=== PATIENT | male | born 1975 | race Caucasian/White ===

== ENCOUNTER 2017-02-16 06:37 | Day surgery (SDC) | payer BC, OTHER ==
[2017-02-16] MEDS ORDERED: Lidocaine 1% with EPINEPHrine 1:100,000 50 ML MDV ONE (06:44)
[2017-02-16] MEDS ORDERED: Bupivacaine 0.5% 50 ML MDV ONE (06:44)
[2017-02-16] MEDS ORDERED: fentaNYL 250 MCG/5 ML SDV ONE ×2 (07:28→08:17)
[2017-02-16] MEDS ORDERED: Neostigmine Methylsulfate 1 MG/ML 5 ML Syringe ONE (07:29)
[2017-02-16] MEDS ORDERED: Glycopyrrolate 0.2 MG/ML 5 ML MDV ONE (07:29)
[2017-02-16] MEDS ORDERED: Rocuronium 50 MG/5 ML Vial ONE (07:29)
[2017-02-16] MEDS ORDERED: Ondansetron 4 MG/2 ML SDV ONE (07:29)
[2017-02-16] MEDS ORDERED: Propofol 200 MG/20 ML SDV ONE (07:29)
[2017-02-16] MEDS ORDERED: Dexamethasone 4 MG/ML SDV ONE (07:29)
[2017-02-16] MEDS ORDERED: Albuterol/Ipratropium 3.0-0.5 MG/3 ML Neb Soln NEB ONE (07:50)
[2017-02-16] MEDS ORDERED: Sodium Chloride 0.9% 1,000 ML IV SCH (08:00)
[2017-02-16] MEDS ORDERED: Sodium Chloride 0.9% 10 ML ONE (08:17)
[2017-02-16] MEDS ORDERED: metroNIDAZOLE/Normal Saline 500 MG in Premix Bag 1 BAG IV ONE (08:30)
[2017-02-16] MEDS ORDERED: ceFAZolin 2 GM in Premix Bag 1 BAG IV ONE (08:30)
[2017-02-16] MEDS ORDERED: ceFAZolin 2 GM in Sodium Chloride 0.9% 50 ML IV ONE (08:30)
[2017-02-16] MEDS ORDERED: Ketorolac 60 MG/2 ML SDV ONE (09:01)
[2017-02-16] MEDS ORDERED: traMADol 50 MG Tab PO PRN (09:06)
[2017-02-16] MEDS ORDERED: hydrOXYzine HCl 100 MG/2 ML SDV IM PRN (09:07)
--- NOTE | 2017-02-17 09:48 | OR ---
DATE OF PROCEDURE: 02/16/2017 PROCEDURE: Total extraperitoneal hernia repair, bilateral. COMPLICATIONS: None. COSTUME SEAMSTRESS: None. ANESTHESIA: General. INDICATIONS: A pleasant 41-year-old with bilateral inguinal hernias requiring definitive repair. RISKS: Risks, benefits, alternatives, limitations including but not limited to infection, bleeding, injury to the testicles with clotting, possible testicular loss, chronic pain, scar formation, other risks that are not listed here were explained to the patient. PROCEDURE IN DETAIL: The patient was placed in a supine position. A linear infraumbilical incision was made. This was used with electrocautery down to the rectus, external oblique aponeurosis, which was opened with electrocautery. The rectus muscles were then and a Pean used to create a plane between the peritoneum and the rectus muscles. The kidney balloon, double insufflation balloon, was then advanced to the pubic symphysis, and the abdomen insufflated with 30 pumps of the insufflator under direct visualization. The balloon was then removed, and the area was inspected. Excellent dissection was noted. Two 5-mm ports were also entered under direct visualization. Dissection was then commenced with left and right side, left side first. This was performed using a [id number] type technique in the avascular plane. The hernia was noted to be indirect and dissection continued, leaving the cord structures. Of note, the cord structures were identified multiple times but were not interacted with in any way. Once dissection was complete, the pubic symphysis dissection was commenced on the right side. The right side was dissected in the same manner, same fashion, same technique, and same sequence using the same equipment. Both were indirect inguinal hernias. The mesh system was then rolled and introduced. This was unrolled with pubic symphysis overlap and the mesh centered on the hernia defect. Once this was unrolled, the right side was then performed in the same manner, same fashion, same technique, and in the same sequence. The air was subsequently deflated under direct visualization, and the mesh was noted to be in place. The fascia was then closed with 0 Vicryl in an interrupted fashion. Subcutaneous tissues were closed with 3-0 Vicryl. Skin was closed with 4-0 Vicryl and Dermabond was applied. The patient tolerated the procedure well. Chuy Fernández MD /[id number]
== END 2017-02-16 13:59 | disposition home or self-care (01) ==
LOC: JP.SDS 06:37
PROVIDERS: ATTEND Surgery
DX: K40.20 Bilateral inguinal hernia, without obstruction or gangrene, not specified as recurrent (principal); F17.210 Nicotine dependence, cigarettes, uncomplicated
CPT/HCPCS: 49505; A9270; C1727; C1781; J0690; J1100; J1885; J2405; J2704; J2710; J3010; J3410; J7040; J7050; J7620

== ENCOUNTER 2017-09-04 13:17 | Emergency (ER) | payer BC ==
[2017-09-04] MEDS ORDERED: Ketorolac 60 MG/2 ML SDV IM ONE (13:54)
--- NOTE | 2017-09-04 14:07 | EDM.PDOC ---
ED HPI GENERAL MEDICAL PROBLEM - General Chief Complaint: Bite:Animal, Insect Stated Complaint: LACK OF ENGERY AND NOT EATING Time Seen by Provider: 09/04/17 13:45 Source of Information: Reports: Patient, Family History Limitations: Reports: No Limitations - History of Present Illness INITIAL COMMENTS - FREE TEXT/NARRATIVE: 42-year-old male with generalized malaise, fever, decreased energy, lack of appetite and headache over the past 24-36 hours. He removed a small but engorged tick from his penis one week ago and is concerned it may be related. He has no other specific symptoms other than a headache, he has no sore throat, cold symptoms, cough or shortness of breath, rashes, joint pains or abdominal pain. Denies dysuria. He took acetaminophen last evening and it didn't help. This morning he usually eats 3 eggs, he only ate one and couldn't eat anymore. Onset: Gradual (Over the past day and a half) Severity: Moderate Associated Symptoms: Reports: Fever/Chills, Loss of Appetite, Malaise, Weakness , Other (Headache). Denies: Confusion, Nausea/Vomiting, Shortness of Breath - Related Data Allergies Allergy/AdvReac Type Severity Reaction Status Date / Time acetaminophen [From Lortab] Allergy Itching Verified 02/16/17 07:35 bee venom protein (honey bee) Allergy Cannot Verified 02/16/17 07:23 Remember hydrocodone [From Lortab] Allergy Itching Verified 02/16/17 07:35 Home Meds: Home Meds NK [No Known Home Meds] 09/04/17 [History] Past Medical History HEENT History: Reports: Impaired Vision Cardiovascular History: Reports: Other (See Below) Other Cardiovascular History: pleurisy Musculoskeletal History: Reports: Fracture Dermatologic History: Reports: Other (See Below) Other Dermatologic History: rash - Infectious Disease History Infectious Disease History: Reports: Chicken Pox - Past Surgical History HEENT Surgical History: Reports: Oral Surgery Cardiovascular Surgical History: Reports: None Musculoskeletal Surgical History: Reports: Arthroscopic Knee, Other (See Below) Other Musculoskeletal Surgeries/Procedures:: plate and screws d/t fx on right wrist Dermatological Surgical History: Reports: None Social & Family History - Tobacco Use Smoking Status *Q: Current Every Day Smoker Years of Tobacco use: 30 Packs/Tins Daily: 3 - Caffeine Use Caffeine Use: Reports: Coffee - Recreational Drug Use Recreational Drug Use: No ED ROS GENERAL - Review of Systems Review Of Systems: See Below Constitutional: Reports: Fever, Chills, Malaise, Weakness, Decreased Appetite HEENT: Reports: Eye Pain (Bilateral, feels like pressure). Denies: Vision Change Respiratory: Reports: No Symptoms Cardiovascular: Reports: No Symptoms GI/Abdominal: Reports: Decreased Appetite. Denies: Abdominal Pain, Constipation , Diarrhea : Reports: No Symptoms Neurological: Reports: Headache. Denies: Confusion, Dizziness Psychiatric: Reports: No Symptoms ED EXAM, ANIMAL BITE - Physical Exam Exam: See Below Exam Limited By: No Limitations General Appearance: Alert, No Apparent Distress (Looks uncomfortable but not distressed) Eye Exam: Bilateral Eye: Normal Inspection Throat/Mouth: Normal Inspection Head: Atraumatic Neck: No: Lymphadenopathy (R), Lymphadenopathy (L) Respiratory/Chest: No Respiratory Distress, Lungs Clear Cardiovascular: Regular Rate, Rhythm, Tachycardia GI/Abdominal: Soft, Non-Tender Extremities: Normal Inspection. No: Pedal Edema Neurological: Alert, Oriented, No Motor/Sensory Deficits Psychiatric: Normal Affect, Normal Mood Skin Exam: Normal Color, Warm/Dry Course - Vital Signs Last Recorded V/S: Last Vital Signs Temp 103.3 F H 09/04/17 13:37 Pulse 122 H 09/04/17 13:37 Resp 15 09/04/17 13:37 BP 138/82 09/04/17 13:37 Pulse Ox 97 09/04/17 13:37 - Orders/Labs/Meds Orders: Active Orders 24 hr Category Date Time Status HUMAN GRANULOCYTIC CLOVER-HGE Routine Lab 09/04/17 15:32 Received LYME, TOTAL AB TEST/REFLEX Routine Lab 09/04/17 15:32 Received UA W/MICROSCOPIC [URIN] Urgent Lab 09/04/17 13:54 Ordered Labs: Laboratory Tests 09/04/17 09/04/17 09/04/17 Range/Units 13:54 14:07 14:07 WBC 4.2 L (4.5-11.0) K/uL RBC 4.94 (4.30-5.90) M/uL Hgb 15.3 H (12.0-15.0) g/dL Hct 44.4 (40.0-54.0) % MCV 90 (80-98) fL MCH 31 (27-31) pg MCHC 35 (32-36) % Plt Count 137 L (150-400) K/uL Neut % (Auto) 88 H (36-66) % Lymph % (Auto) 10 L (24-44) % [place] % (Auto) 2 (2-6) % Eos % (Auto) 0 L (2-4) % Baso % (Auto) 0 (0-1) % Sodium 130 L (140-148) mmol/L Potassium 4.2 (3.6-5.2) mmol/L Chloride 95 L (100-108) mmol/L Carbon Dioxide 25 (21-32) mmol/L Anion Gap 14.2 H (5.0-14.0) mmol/L BUN 14 (7-18) mg/dL Creatinine 1.0 (0.8-1.3) mg/dL Est Cr Clr Drug Dosing 104.54 mL/min Estimated GFR (MDRD) > 60 (>60) Glucose 124 H (74-106) mg/dL Calcium 8.5 (8.5-10.1) mg/dL Total Bilirubin 0.7 (0.2-1.0) mg/dL AST 187 H (15-37) U/L ALT 121 H (12-78) U/L Alkaline Phosphatase 130 H (46-116) U/L Total Protein 7.2 (6.4-8.2) g/dL Albumin 3.6 (3.4-5.0) g/dL Globulin 3.6 H (2.3-3.5) g/dL Albumin/Globulin Ratio 1.0 L (1.2-2.2) Urine Color Red Urine Appearance Cloudy Urine pH 6.5 (4.5-8.0) Ur Specific Crow[place] 1.010 (1.008-1.030) Urine Protein Negative (NEGATIVE) mg/dL Urine Glucose (UA) Normal (NEGATIVE) mg/dL Urine Ketones Negative (NEGATIVE) mg/dL Urine Occult Blood Moderate (NEGATIVE) Urine Nitrite Negative (NEGAITVE) Urine Bilirubin Small (NEGATIVE) Urine Urobilinogen 8 (NORMAL) mg/dL Ur Leukocyte Esterase Negative (NEGATIVE) Urine RBC Packed H (0-5) Urine WBC 0-5 (0-5) Ur Epithelial Cells Moderate Amorphous Sediment Few Urine Bacteria Rare Urine Mucus Few Meds: Medications Discontinued Medications Generic Name Dose Route Start Last Admin Trade Name Angela PRN Reason Stop Dose Admin Hydromorphone HCl 1 mg 09/04/17 15:13 09/04/17 15:19 Dilaudid IM 09/04/17 15:14 1 mg ONETIME ONE Administration Ketorolac Tromethamine 60 mg 09/04/17 13:54 09/04/17 13:59 Toradol IM 09/04/17 13:55 60 mg ONETIME ONE Administration - Re-Assessments/Exams Free Text/Narrative Re-Assessment/Exam: 09/04/17 14:07 UA was obtained, as well as a CBC and CMP. Patient was given 60 mg of IM Toradol. 09/04/17 15:20 CBC revealed a somewhat low WBC and platelets, CMP elevated liver enzymes. These correlate with a tick infection. Patient will be started on doxycycline 100 twice a day pending serum verification, Lyme's disease and ehrlichiosis were ordered. Patient was given 1 mg of IM Dilaudid prior to discharge. He was also given 10 Percocet for extra pain control. Departure - Departure Time of Disposition: 15:30 Disposition: Home, Self-Care 01 Condition: Good Clinical Impression: Tick-borne disease - Discharge Information Instructions: Tick Bite Information, Adult Referrals: PCP,None [Primary Care Provider] - Forms: ED Department Discharge Care Plan Goals: Take antibiotic twice a day for 10 days, we will be in touch with you with lab results are positive. Return in 3-4 days if not improving satisfactorily or sooner if worsening. A regular dose of ibuprofen or naproxen should help, add stronger pain medication as prescribed if needed. - My Orders Last 24 Hours: My Active Orders 09/04/17 13:54 UA W/MICROSCOPIC [URIN] Urgent 09/04/17 15:32 HUMAN GRANULOCYTIC CLOVER-HGE Routine LYME, TOTAL AB TEST/REFLEX Routine - Assessment/Plan Last 24 Hours: My Active Orders 09/04/17 13:54 UA W/MICROSCOPIC [URIN] Urgent 09/04/17 15:32 HUMAN GRANULOCYTIC CLOVER-HGE Routine LYME, TOTAL AB TEST/REFLEX Routine
[2017-09-04] MEDS ORDERED: HYDROmorphone 1 MG/ML Syringe IM ONE ×2 (15:11→15:13)
== END 2017-09-04 15:30 | disposition home or self-care (01) ==
LOC: JP.ED 13:17
DX: A68.1 Tick-borne relapsing fever (principal); F17.210 Nicotine dependence, cigarettes, uncomplicated; Z91.030 Bee allergy status; Z88.5 Allergy status to narcotic agent
CPT/HCPCS: 36415; 80053; 81001; 85025; 86666; 96372; 99284; J1170; J1885

== ENCOUNTER 2018-09-23 06:08 | Day surgery (SDC) | payer BC ==
[2018-09-23] MEDS ORDERED: Lactated Ringers 1,000 ML IV SCH (07:00)
[2018-09-23] MEDS ORDERED: Midazolam 1 MG/ML 2 ML SDV ONE (07:36)
[2018-09-23] MEDS ORDERED: fentaNYL 100 MCG/2 ML SDV ONE (07:36)
[2018-09-23] MEDS ORDERED: Propofol 200 MG/20 ML SDV ONE (07:36)
--- NOTE | 2018-09-23 13:24 | OR ---
DATE OF PROCEDURE: 09/23/2018 PREOPERATIVE DIAGNOSIS: Strong family history of colon cancer, mother had colon cancer. POSTOPERATIVE DIAGNOSIS: Unremarkable colonoscopy; strong family history of colon cancer, mother had colon cancer. PROCEDURE: Colonoscopy to the cecum. SURGEON: Edilberto Forman MD ANESTHESIA: IV anesthesia with monitored anesthesia care. INDICATION: This 43-year-old white male is referred for a colonoscopy because his mother had colon cancer. I counseled him for the procedure, including risks and alternatives, and gave his informed consent to proceed. DESCRIPTION OF PROCEDURE: The patient was placed in the left lateral decubitus position. IV anesthesia was administered by the Anesthesia Service. Time-out was held. A rectal exam was performed, which was unremarkable. The flexible video Olympus colonoscope was introduced through his anus, up his rectum and out his colon all the way to the cecum. Once the cecum was reached, the scope was slowly withdrawn, examining the mucosa throughout. No mucosal abnormalities were noted. The scope was retroflexed in the rectum with the distal rectum appeared unremarkable. The scope was straightened and removed. He tolerated the procedure well. Edilberto Forman MD /[id number] MTDD
== END 2018-09-23 09:05 | disposition home or self-care (01) ==
LOC: JP.SDS 06:08
PROVIDERS: ATTEND Surgery
DX: Z12.11 Encounter for screening for malignant neoplasm of colon (principal); F17.200 Nicotine dependence, unspecified, uncomplicated; Z91.030 Bee allergy status; Z80.0 Family history of malignant neoplasm of digestive organs
CPT/HCPCS: 45378; J2250; J2704; J3010; J7120

== ENCOUNTER 2024-04-02 00:15 | Emergency (ER) | payer OTHER ==
[2024-04-02] MEDS: Ibuprofen 600 MG Tab PO ONE (00:39)
[2024-04-02] MEDS: Ibuprofen 400 MG Tab PO ONE (00:40)
== END 2024-04-02 01:18 | disposition home or self-care (01) ==
LOC: JP.ED 00:15
DX: S93.401A Sprain of unspecified ligament of right ankle, initial encounter (principal); Z88.5 Allergy status to narcotic agent; Z91.030 Bee allergy status; W00.0XXA Fall on same level due to ice and snow, initial encounter
CPT/HCPCS: 73610; 99283; A9270

== ENCOUNTER 2024-11-11 11:03 | Emergency (ER) | payer OTHER ==
[2024-11-11] MEDS: Lidocaine/Epineph/Tetracaine 3 ML Syringe TOP ONE (12:52)
[2024-11-11] MEDS: Diphtheria,Pertussis(Acell),Tetanus Vaccine 0.5 ML Syringe IM ONE (12:55)
== END 2024-11-11 14:25 | disposition home or self-care (01) ==
LOC: JP.ED 11:03
DX: S61.411A Laceration without foreign body of right hand, initial encounter (principal); F17.210 Nicotine dependence, cigarettes, uncomplicated; Z91.030 Bee allergy status; Z23 Encounter for immunization; Z88.5 Allergy status to narcotic agent; W26.8XXA Contact with other sharp object(s), not elsewhere classified, initial encounter
CPT/HCPCS: 12002; 90471; 90715; 99282; A9270